=== PATIENT | female | born 1975 | race Caucasian/White ===

== ENCOUNTER 2019-09-25 10:01 | Outpatient (CLI) | payer OTHER, SELFPAY ==
--- NOTE | 2019-09-25 12:31 | DI.RAD_ITS ---
EXAM: XR ELBOW LT COMPLETE CLINICAL HISTORY: Struck multiple time by spinning part on lathe, PAIN, M25.522 TECHNIQUE: COMPARISON: No exams were available for comparison FINDINGS: Three views were obtained. There is no evidence of an elbow joint effusion or hemarthrosis. No frac ture is seen. IMPRESSION:
== END 2019-09-25 10:21 ==
PROVIDERS: Visit Provider Nurse Practitioner Family
DX: M25.522 Pain in left elbow (principal)
CPT/HCPCS: 73080